=== PATIENT | female | born 2000 | race Caucasian/White ===

== ENCOUNTER 2018-01-08 09:10 | Emergency (ER) | payer MEDICAID, SELFPAY ==
[2018-01-08 09:12] VITALS: BP 141/83; PULSE 87; RESP 16; TEMP 36.6; O2SAT 99; BMI 27.9
--- NOTE | 2018-01-08 09:26 | CT_ITS ---
STUDY: CT ABDOMEN AND PELVIS WITHOUT CONTRAST REASON FOR EXAM: Female, 17 years old. LEFT SIDE ABD PAIN, DIARRHEA RADIATION DOSAGE (If Supplied By Facility): CTDIvol = ( 6.20 ) mGy, DLP = ( 278.86 ) mGycm TECHNIQUE: Transaxial images were obtained from the dome of the diaphragm to the symphysis pubis without oral contrast, and without intravenous contrast. Sagittal and coronal images were reconstructed. Individualized dose optimization techniques were used for this CT. COMPARISON: None. FINDINGS: The visualized lung bases are unremarkable. The visualized portions of the heart are within normal limits. Normal liver. Normal gallbladder and extrahepatic biliary system. Normal spleen. Normal pancreas. Normal bilateral adrenal glands. Normal right kidney. Normal left kidney. Normal visualized stomach. Normal small intestine. Normal colon. The appendix is visualized and appears normal. Normal abdominal aorta. Normal inferior vena cava. Normal retroperitoneum. Normal urinary bladder. Normal abdominal wall. Normal osseous structures. CT/Abdomen/Pelvis without Cont IMPRESSION: Normal unenhanced CT of the abdomen and pelvis. Electronically Signed: Jae Joel MD at 10:57 EDT Tel , Service support ,
[2018-01-08 09:50] LABS: Absolute Lymphocyte Count 2.27 X10^3/ul (0.83-4.51); Absolute Neutrophil Count 4.1 X10^3/uL (2.0-7.7); Basophil# 0.01 X10^3/uL; Basophil% 0.1 % (0-1); Eosinophil# 0.23 X10^3/uL; Eosinophils% 3.2 % (0-5); Hematocrit 41.7 % (37-47); Hemoglobin 14.6 g/dl (12.0-15.0); Lymphocyte # 2.27 X10^3/ul (4.0); Lymphocyte % 31.7 % (19-41); Mean Corpuscular Hgb 30.5 pg (27.0-32.0); Mean Corpuscular Volume 87.1 fL (81-99); Mean Platelet Vol. 10.7 fl (6.2-12.0); Neutrophil # 4.12 X10^3/uL (2.7-7.7); Neutrophil % 57.7 % (47-70); Platelet Count 222 K/mm3 (150-450); RBC Distribution Width CV 12.5 % (11.6-14.6); RBC Distribution Width SD 39.4 fl (35.1-43.9); Red Blood Count 4.79 M/mm3 (4.2-5.4); White Blood Count 7.2 K/mm3 (4.4-11.0)
[2018-01-08 09:54] LABS: POSITIVE COUNT NO; POSITIVE DIFFERENTIAL NO; POSITIVE MORPHOLOGY NO
[2018-01-08 10:02] LABS: Anion Gap 7 (5-15); BUN 8 mg/dL (7-18); BUN/Creat Ratio 11.4 RATIO (10-20); Calcium,Total 8.9 mg/dL (8.5-10.1); Chloride 104 mmol/L (98-107); EST Glomerular Filtration Rate 113 mL/min (>60); Est Glom Filt Rate - Afr Amer 137 mL/min (>60); Estimated Creatinine Clearance 92.85 ml/min; Glucose 125 mg/dL (74-106); Potassium 3.4 mmol/L (3.5-5.1); Sodium Level 139 mmol/L (136-145)
[2018-01-08] MEDS: 0.9% Normal Saline 1,000 ML 125 ML IV (10:04)
[2018-01-08] MEDS: Ketorolac 30 MG/ML Syringe IV (10:04)
[2018-01-08 10:19] LABS: Pregnancy, Serum, hCG Quali. NEGATIVE Negative (0-9 Nonpreg)
[2018-01-08 10:22] LABS: Red Blood Cells-Urine 0 SEEN /hpf (0-5)
[2018-01-08 10:29] LABS: Color, Urine Yellow (Yellow); Glucose, Dipstick Normal (Normal); Ketone-Dipstick Negative (Negative); Leukocyte Esterase-Dipstick 100 /ul (Negative); Nitrite-Dipstick Negative (Negative); Occult Blood-Urine Negative /ul (Negative); Protein-Dipstick 15 mg/dl (Negative); Specific Gravity, Urine 1.015 (1.002-1.030); Urine Bilirubin Dipstick Negative (Negative); Urine Clarity Sl. Cloudy (Clear); Urine Urobilinogen Normal (Normal); Urine pH 6.5 (5.0 - 8.0)
[2018-01-08 10:41] LABS: Bacteria 1+ /hpf (None Seen); Mucous, Urine 1+ /hpf (<or=2+); Squamous Epithelial Cells - UA 0-5 SEEN /hpf (5-10); White Blood Cells 10-25 SEEN /hpf (0-5)
--- NOTE | 2018-01-08 11:08 | ED.DCSUM_ITS ---
- ER Visit Summary Date of Service: 01/08/18 Chief Complaint: [Abdominal pain] History of Present Illness: The patient is a 17 F [presents to the emergency department with complaint of abdominal pain that started 3 days ago. Patient denies any nausea or vomiting. Patient also with diarrhea for the last 2-3 days that has been watery and about every 2-3 hours. Patient complains of urinary frequency but no dysuria. Patient has a history of PCO S and her last menstrual period was on December 08. Patient took a home test on January 04 and was negative. Patient denies any sick contacts. Patient rates her pain an 8 or 9 out of 10 on arrival. Patient describes the pain is left lower abdomen and into her back.] Physical Examination: [HEENT-PERRLA, EOMI. Cranial nerves II through XII grossly intact. TMs clear. Mucous membranes moist. No adenopathy. Cardiovascular-regular rate and rhythm without murmur or ectopy Lungs-clear to auscultation, chest wall stable without crepitus or subcu emphysema Abdomen-normoactive bowel sounds, soft. Patient has tenderness over left lower quadrant with some guarding. There is no rebound, rigidity, or perineal signs. Patient has CVA tenderness on the left. Extremities-intact ?4, normal range of motion, normal pulses, atraumatic] Test Results: [CBC with differential was normal. Chemistries unremarkable other than a slightly depressed potassium at 3.4. Glucose was 125. Urinalysis was positive for 100 leukocyte esterase, 10-25 WBCs, +1 bacteria. Urine culture was sent. HCG was negative. CT flank was normal.] Emergency Department Course and Treatment: [Patient was given a liter normal same fluid bolus as well as Zofran. Patient was medicated with Toradol. Patient was given Rocephin 1 g IV.] Treatment Plan: [Patient will be sent home with a prescription for Bactrim, Zofran, and advised to use Imodium for continued diarrhea.] Disposition: [Discharged home in stable condition. Patient advised to return if worsening pain, fever, dehydration, bloody stools, or condition should worsen in any way.] Impression: [Abdominal pain Urinary tract infection Diarrhea-suspect viral] This note was generated with [employer] dictation software. It may contain incorrect words, spelling, and punctuation that were not noted in review of the chart prior to signing ED Disposition - Plan for ED Patient: Chief Complaint: Abd Pain Referrals: Hesham Gomez DO [Primary Care Provider] -
--- NOTE | 2018-01-08 11:09 | ED.DEP ---
ED Disposition - Plan for ED Patient: Chief Complaint: Abd Pain Instructions: ED Abdominal Pain Unkn Cause, ED UTI Cystitis Female, ED Diarrhea Viral Prescriptions: Dicyclomine HCl [Bentyl] 20 mg PO TIDAC #20 cap Smz/Tmp Ds [Bactrim Ds] 1 tab PO BID #6 tab Referrals: Hesham Gomez DO [Primary Care Provider] - 3-5 Days
[2018-01-08] MEDS: Ceftriaxone 1 GM/50 mL Premix Q24 IV (11:16)
[2018-01-08 12:27] VITALS: BP 122/73; PULSE 84; RESP 14; TEMP 36.6; O2SAT 100
== END 2018-01-08 12:28 | disposition home or self-care (01) ==
PROVIDERS: Emergency Provider Emergency Medicine; Family Provider Preventive Medicine Occupational Medicine; PCP Preventive Medicine Occupational Medicine
DX: R10.9 Unspecified abdominal pain (principal); N39.0 Urinary tract infection, site not specified; R19.7 Diarrhea, unspecified; Z72.0 Tobacco use
CPT/HCPCS: 74176; 80048; 81001; 84703; 85025; 87086; 87088; 96361; 96365; 96375; 99283; J7030; A4216

== ENCOUNTER → 2018-02-01 14:57 | Outpatient (CLI) | payer MEDICAID, SELFPAY ==
[2018-02-02 08:28] LABS: Progesterone Level 0.82 ng/mL (See Comment)
== END ==
PROVIDERS: Visit Provider Obstetrics & Gynecology
DX: N92.5 Other specified irregular menstruation (principal)
CPT/HCPCS: 36415; 84144

== ENCOUNTER 2018-04-09 11:30 | Emergency (ER) | payer OTHER, SELFPAY ==
[2018-04-09 11:31] VITALS: BP 132/78; PULSE 94; RESP 17; TEMP 36.6; O2SAT 100; BMI 28.3
[2018-04-09] MEDS: 0.9% Normal Saline 1,000 ML 1000 ML IV (12:00)
[2018-04-09] MEDS: Morphine 4 MG/ML Syringe IV (12:00)
[2018-04-09] MEDS: Ondansetron 4 MG/2 ML Vial IV (12:00)
[2018-04-09 12:09] LABS: Absolute Lymphocyte Count 1.64 X10^3/ul (0.83-4.51); Absolute Neutrophil Count 11.5 X10^3/uL (2.0-7.7); Basophil# 0.01 X10^3/uL; Basophil% 0.1 % (0-1); Eosinophil# 0.19 X10^3/uL; Eosinophils% 1.3 % (0-5); Hematocrit 45.5 % (37-47); Hemoglobin 15.3 g/dl (12.0-15.0); Lymphocyte # 1.64 X10^3/ul (4.0); Lymphocyte % 11.6 % (19-41); Mean Corp Hgb Conc 33.6 g/gl (32-36); Mean Corpuscular Hgb 29.5 pg (27.0-32.0); Mean Corpuscular Volume 87.8 fL (81-99); Mean Platelet Vol. 10.3 fl (6.2-12.0); Monocyte# 0.78 X10^3/uL; Monocyte% 5.5 % (0-10); Neutrophil # 11.46 X10^3/uL (2.7-7.7); Neutrophil % 81.4 % (47-70); POSITIVE COUNT NO; POSITIVE DIFFERENTIAL NO; POSITIVE MORPHOLOGY NO; Platelet Count 242 K/mm3 (150-450); RBC Distribution Width CV 12.5 % (11.6-14.6); RBC Distribution Width SD 39.8 fl (35.1-43.9); Red Blood Count 5.18 M/mm3 (4.2-5.4); White Blood Count 14.1 K/mm3 (4.4-11.0)
[2018-04-09 12:26] LABS: ALB/GLOB Ratio 1.2 RATIO (0.9-2.4); AST(SGOT) 12 U/L (15-37); Alanine Aminotransfer ALT/SGPT 18 U/L (13-56); Alkaline Phosphatase 82 U/L (45-117); Anion Gap 7 (5-15); BUN 8 mg/dL (7-18); BUN/Creat Ratio 12.4 RATIO (10-20); Calcium,Total 8.9 mg/dL (8.5-10.1); Chloride 103 mmol/L (98-107); Creatinine, Serum 0.64 mg/dL (0.55-1.02); EST Glomerular Filtration Rate 125 mL/min (>60); Est Glom Filt Rate - Afr Amer 151 mL/min (>60); Estimated Creatinine Clearance 101.56 ml/min; Globulin 3.3 g/dL (2.2-4.2); Glucose 86 mg/dL (74-106); Potassium 3.8 mmol/L (3.5-5.1); Protein, Total 7.3 g/dL (6.4-8.2); Sodium Level 138 mmol/L (136-145)
[2018-04-09 12:29] LABS: Pregnancy, Serum, hCG Quali. NEGATIVE Negative (0-9 Nonpreg)
--- NOTE | 2018-04-09 13:17 | CT_ITS ---
STUDY: CT ABDOMEN AND PELVIS WITHOUT CONTRAST REASON FOR EXAM: Female, 17 years old. Lower cramping abdominal pain. RADIATION DOSAGE (If Supplied By Facility): CTDIvol = ( 6.96 ) mGy, DLP = ( 324.92 ) mGycm TECHNIQUE: Transaxial images were obtained from the dome of the diaphragm to the symphysis pubis without oral contrast, and without intravenous contrast. Sagittal and coronal images were reconstructed. Individualized dose optimization techniques were used for this CT. COMPARISON: Comparison is made with prior study dated January 08, 2018. FINDINGS: The visualized lung bases are unremarkable. The visualized portions of the heart are within normal limits. Normal liver. Normal gallbladder and extrahepatic biliary system. Normal spleen. Normal pancreas. Normal bilateral adrenal glands. Normal right kidney. Normal left kidney. Normal visualized stomach. Normal small intestine. Normal colon. The appendix is visualized and appears normal. Normal abdominal aorta. Normal inferior vena cava. Normal retroperitoneum. Normal urinary bladder. Normal abdominal wall. Normal osseous structures. CT/Abdomen/Pelvis without Cont IMPRESSION: Normal unenhanced CT of the abdomen and pelvis. Electronically Signed: Carlos Ram MD at 13:56 EDT Tel [phone], Service support ,
[2018-04-09 14:04] LABS: Red Blood Cells-Urine 0 SEEN /hpf (0-5)
[2018-04-09 14:13] VITALS: BP 111/52; PULSE 86; RESP 14; O2SAT 100
[2018-04-09 14:24] LABS: Color, Urine Yellow (Yellow); Glucose, Dipstick Normal (Normal); Ketone-Dipstick Negative (Negative); Leukocyte Esterase-Dipstick 500 /ul (Negative); Nitrite-Dipstick Negative (Negative); Occult Blood-Urine Negative /ul (Negative); Protein-Dipstick Negative (Negative); Specific Gravity, Urine 1.015 (1.002-1.030); Urine Bilirubin Dipstick Negative (Negative); Urine Clarity Sl. Cloudy (Clear); Urine Urobilinogen Normal (Normal)
[2018-04-09 14:39] LABS: Squamous Epithelial Cells - UA 0-5 SEEN /hpf (5-10); White Blood Cells 25-50 SEEN /hpf (0-5)
[2018-04-09 14:40] LABS: Bacteria 1+ /hpf (None Seen); Mucous, Urine 1+ /hpf (<or=2+)
--- NOTE | 2018-04-09 15:05 | ED.VISSUMM ---
- ER Visit Summary Date of Service: 04/09/18 Chief Complaint: [Abdominal pain] History of Present Illness: The patient is a 17 F [presents the emergency department complaint of abdominal pain that started around 9 AM. Patient is vomited ?2. Patient states her last menstrual period was supposed to be 2 or 3 days ago and she is a little bit late. Patient denies any fever. She denies urinary symptoms. Patient does have a history of PCO S. She denies any sick contacts.] Physical Examination: [HEENT-PERRLA, EOMI. Cranial nerves II through XII grossly intact. TMs clear. Mucous membranes moist. No adenopathy. Cardiovascular-regular rate and rhythm without murmur or ectopy Lungs-clear to auscultation, chest wall stable without crepitus or subcu emphysema Abdomen-normoactive bowel sounds, soft. Patient has significant discomfort to her abdomen mostly lower quadrants on palpation. There is no rebound, rigidity, or perineal signs. No CVA tenderness on exam. Extremities-intact ?4, normal range of motion, normal pulses, atraumatic] Test Results: [C with differential obtained showed an elevated white blood cell count of 14.1, hemoglobin 15, hematocrit 45, platelets 242. Chemistries unremarkable. LFTs were normal. HCG was negative. Urine showed positive for 500 leukocyte esterase 25-50 WBCs and +[address] flank showed nothing acute and the appendix was visualized and was normal.] Emergency Department Course and Treatment: Patient while in the emergency department was medicated with morphine and Zofran. Patient was given a dose of Bactrim. [] Treatment Plan: [Patient follow-up with her primary care physician within next 3-5 days. Patient will be treated with Bactrim, Zofran, and Pyridium. Patient also will be given a prescription for 10 [place] tablets for severe pain.] Disposition: [Discharged home in stable condition] Impression: [Abdominal pain Urinary tract infection] This note was generated with [employer] dictation software. It may contain incorrect words, spelling, and punctuation that were not noted in review of the chart prior to signing ED Disposition - Plan for ED Patient: Chief Complaint: Abd Pain Referrals: Hesham Gomez DO [Primary Care Provider] -
--- NOTE | 2018-04-09 15:08 | ED.DCSUM_ITS ---
- ER Visit Summary Date of Service: 04/09/18 Chief Complaint: [Abdominal pain] History of Present Illness: The patient is a 17 F [presents the emergency department complaint of abdominal pain that started around 9 AM. Patient is vomited ?2. Patient states her last menstrual period was supposed to be 2 or 3 days ago and she is a little bit late. Patient denies any fever. She denies urinary symptoms. Patient does have a history of PCO S. She denies any sick contacts.] Physical Examination: [HEENT-PERRLA, EOMI. Cranial nerves II through XII grossly intact. TMs clear. Mucous membranes moist. No adenopathy. Cardiovascular-regular rate and rhythm without murmur or ectopy Lungs-clear to auscultation, chest wall stable without crepitus or subcu emphysema Abdomen-normoactive bowel sounds, soft. Patient has significant discomfort to her abdomen mostly lower quadrants on palpation. There is no rebound, rigidity , or perineal signs. No CVA tenderness on exam. Extremities-intact ?4, normal range of motion, normal pulses, atraumatic] Test Results: [C with differential obtained showed an elevated white blood cell count of 14.1, hemoglobin 15, hematocrit 45, platelets 242. Chemistries unremarkable. LFTs were normal. HCG was negative. Urine showed positive for 500 leukocyte esterase 25-50 WBCs and +[address] flank showed nothing acute and the appendix was visualized and was normal.] Emergency Department Course and Treatment: Patient while in the emergency department was medicated with morphine and Zofran. Patient was given a dose of Bactrim. [] Treatment Plan: [Patient follow-up with her primary care physician within next 3 -5 days. Patient will be treated with Bactrim, Zofran, and Pyridium. Patient also will be given a prescription for 10 [place] tablets for severe pain.] Disposition: [Discharged home in stable condition] Impression: [Abdominal pain Urinary tract infection] This note was generated with [employer] dictation software. It may contain incorrect words, spelling, and punctuation that were not noted in review of the chart prior to signing ED Disposition - Plan for ED Patient: Chief Complaint: Abd Pain Referrals: Hesham Gomez DO [Primary Care Provider] -
--- NOTE | 2018-04-09 15:08 | ED.DEP ---
ED Disposition - Plan for ED Patient: Chief Complaint: Abd Pain Instructions: ED Abdominal Pain Unkn Cause, ED UTI Cystitis Female Prescriptions: Hydrocodone Bitart/Apap 5-325 [[place] 5MG-325MG] 1 tab PO Q4H PRN PRN 2 Days #10 tab PRN Reason: Pain Ondansetron [Zofran Odt] 4 mg PO Q8H PRN PRN #10 tab PRN Reason: Nausea Smz/Tmp Ds [Bactrim Ds] 1 tab PO BID #10 tab Phenazopyridine HCl [Pyridium] 200 mg PO TID #10 tab Referrals: Hesham Gomez DO [Primary Care Provider] - 3-5 Days
--- NOTE | 2018-04-09 15:13 | DCINST.ED_ITS ---
ED Disposition - Plan for ED Patient: Chief Complaint: Abd Pain Instructions: ED Abdominal Pain Unkn Cause, ED UTI Cystitis Female Prescriptions: Hydrocodone Bitart/Apap 5-325 [[place] 5MG-325MG] 1 tab PO Q4H PRN PRN 2 Days #10 tab PRN Reason: Pain Ondansetron [Zofran Odt] 4 mg PO Q8H PRN PRN #10 tab PRN Reason: Nausea Smz/Tmp Ds [Bactrim Ds] 1 tab PO BID #10 tab Phenazopyridine HCl [Pyridium] 200 mg PO TID #10 tab Referrals: Hesham Gomez DO [Primary Care Provider] - 3-5 Days
[2018-04-09] MEDS: Smz/Tmp Ds Tablet 1 TABLET PO (15:30)
== END 2018-04-09 16:17 | disposition home or self-care (01) ==
PROVIDERS: Emergency Provider Emergency Medicine; Family Provider Preventive Medicine Occupational Medicine; PCP Preventive Medicine Occupational Medicine
DX: R10.9 Unspecified abdominal pain (principal); N39.0 Urinary tract infection, site not specified; Z72.0 Tobacco use
CPT/HCPCS: 74176; 80053; 81001; 84703; 85025; 99283; J7030; J2405

== ENCOUNTER 2018-12-09 12:31 | Emergency (ER) | payer OTHER, SELFPAY ==
[2018-12-09 12:32] VITALS: BP 159/96; PULSE 112; RESP 15; TEMP 36.7; O2SAT 100; BMI 24.1
--- NOTE | 2018-12-09 13:20 | ED.DCSUM_ITS ---
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, indicates today she came in because she needs to be able to document that she was seen by physician for the pain that she is having that she was sent home for she has had musculoskeletal back pains before she had no direct trauma she has no numbness or paresthesias no head neck chest or abdominal pain Where she hurts she basically indicated from the right parascapular area to the right of the spine all the way down to the lumbar region right paralumbar she has no midline pain and no direct trauma and no numbness weakness paresthesias and again she has had this before with activity Physical Examination: [] All signs are normal General, no distress resting comfortably HEENT is generally unremarkable The neck is supple no adenopathy Cardiovascular, regular rate and rhythm Lungs, clear bilateral Abdomen, soft nontender Her back she there is a vague pain to the right para thoracic and paralumbar musculature there is no C-spine T-spine lumbar back pain she has full range of motion of upper extremities and lower extremities and again she should has been no trauma Extremities, no clubbing cyanosis or edema Neurologic, awake alert answering questions appropriately moving all 4 extremities Test Results: [] Emergency Department Course and Treatment: [] This is a work issue where somehow she needs to document that she was seen by physician I explained her that she has had these ongoing issues she is to follow with her primary care physicians, she will be started on Naprosyn which she will be given her discharge paperwork to show her employer that she was seen in the emergency department if that helps her situation Treatment Plan: [] Disposition: [] Home stable Impression: []rt Sided diffuse back pain related to work activity This note was generated with [employer] software. It may contain incorrect words, spelling, and punctuation that were not noted in review of the chart prior to signing ED Disposition - Plan for ED Patient: Referrals: Hesham Gomez DO [Primary Care Provider] -
--- NOTE | 2018-12-09 13:20 | ED.DEP ---
ED Disposition - Plan for ED Patient: Instructions: ED Spasm Back No Trauma Prescriptions: Naproxen [Naprosyn] 500 mg PO BID PRN #20 tab Referrals: Hesham Gomez DO [Primary Care Provider] -
[2018-12-09] MEDS: Naproxen 500 MG Tablet PO (13:46)
[2018-12-09 13:47] VITALS: PULSE 110; RESP 14; O2SAT 99
== END 2018-12-09 13:52 | disposition home or self-care (01) ==
LOC: ED 13:33
PROVIDERS: Emergency Provider Emergency Medicine; Family Provider Preventive Medicine Occupational Medicine; PCP Preventive Medicine Occupational Medicine
DX: M54.9 Dorsalgia, unspecified (principal)
CPT/HCPCS: 99283

== ENCOUNTER 2019-07-27 23:57 | Emergency (ER) | payer OTHER, SELFPAY ==
[2019-07-27 23:58] VITALS: BP 129/77; PULSE 94; RESP 15; TEMP 36.7; O2SAT 99; BMI 28.0
--- NOTE | 2019-07-28 00:17 | ED.DCSUM_ITS ---
History of Present Illness Chief Complaint: Abd Pain Informant: Patient Onset: Days - 2 Context: Gradual Onset Timing: Continuous Current Severity: Severe Worsened by: Movement, walking Relieved by: Nothing Narrative: Patient is a 19-year-old female with history of PCOS presenting with right-sided abdominal pain. Patient states is been worsening since , 2 days ago. Patient states is she woke up with it is gradually worsened. The pain is in the right middle abdomen it does not radiate. She describes it as sharp. Is worse with movement and walking. She has no associated nausea, vomiting or change in bowel habits. She had no fever chills. She has no urinary symptoms. Her last menstrual period was 2 weeks ago. She does not think she is . She has not taken anything for the pain. 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 She has no associated rash. Patient states she could not take the pain anymore so she came into be evaluated. She denies any other complaints at this time. She states she never had this before. Past Medical History - Allergies and Home Meds Allergies/Adverse Reactions: Allergies sumatriptan [From Imitrex] Allergy (Verified 07/28/19 00:01) Shortness of breath Primary Care Physician: Hesham Gomez DO [Primary Care Provider] - Past Medical History: - - PCOS Surgical History: no surgical history Smoking Status: Current every day smoker Review of Systems All systems negative except as indicated Gastrointestinal: Reports: Abdominal pain Physical Exam Vital Signs/Narrative: Vital Signs Temp Pulse Resp BP Pulse Ox 07/27/19 23:58 98.0 F 94 15 129/77 H 99 Inital Vital Signs reviewed: Yes General: Well nourished, Well developed, No Acute Distress Head: Normocephalic, Atraumatic Eyes: Perrl, EOMI ENT: Moist mucous membranes, No rhinorrhea Neck: Supple, Nontender Cardiovascular: Regular rate, Regular rhythm, No murmurs Respiratory: No distress, CTA bilaterally, Chest nontender Abdomen: Soft, Nondistended, Normal bowel sounds, - - No mass or hernia appreciated, tenderness to palpation in the right mid abdomen and right flank. Negative for: Guarding, Rebound tenderness, Brannon's sign Back: Nontender, Normal Inspection. Negative for: CVA tenderness Extremities: Nontender, No edema Skin: Normal color, No rash Neurological: Alert, Oriented x3, Cranial nerves II-XII grossly intact, Normal Strength, Normal Sensation Psychological: Normal affect, Normal Mood Diagnostic/Tx/Re-eval Laboratory Results - last 24 hr 07/28/19 07/28/19 07/28/19 00:28 00:28 00:30 WBC 8.7 RBC 4.73 Hgb 14.4 Hct 42.9 MCV 90.7 MCH 30.4 MCHC 33.6 RDW Std Deviation 38.7 RDW Coeff of Shania 11.6 Plt Count 286 MPV 10.5 Immature Gran % (Auto) 0.200 Neut % (Auto) 60.9 Lymph % (Auto) 27.0 Alcorn % (Auto) 9.2 Eos % (Auto) 2.0 Baso % (Auto) 0.7 Absolute Neuts (auto) 5.3 Absolute Lymphs (auto) 2.34 Nucleated RBC % 0 Sodium 139 Potassium 3.0 L Chloride 105 Carbon Dioxide 27.0 Anion Gap 7 BUN 11 Creatinine 0.66 Estim Creat Clear Calc 96.85 Est GFR (MDRD) Af Amer 144 Est GFR (MDRD) Non-Af 119 BUN/Creatinine Ratio 16.5 Glucose 102 Calcium 8.9 Total Bilirubin 0.50 AST 9 L ALT 16 Alkaline Phosphatase 68 Total Protein 7.3 Albumin 4.3 Globulin 3.0 Albumin/Globulin Ratio 1.4 Lipase 133 Urine Color Urine Clarity Urine pH Ur Specific [place] Urine Protein Urine Glucose (UA) Urine Ketones Urine Occult Blood Urine Nitrite Urine Bilirubin Urine Urobilinogen Ur Leukocyte Esterase Urine RBC Urine WBC Ur Squamous Epith Cells Urine Bacteria Urine Mucus Urine Test Negative 07/28/19 00:30 WBC RBC Hgb Hct MCV MCH MCHC RDW Std Deviation RDW Coeff of Shania Plt Count MPV Immature Gran % (Auto) Neut % (Auto) Lymph % (Auto) [place] % (Auto) Eos % (Auto) Baso % (Auto) Absolute Neuts (auto) Absolute Lymphs (auto) Nucleated RBC % Sodium Potassium Chloride Carbon Dioxide Anion Gap BUN Creatinine Estim Creat Clear Calc Est GFR (MDRD) Af Amer Est GFR (MDRD) Non-Af BUN/Creatinine Ratio Glucose Calcium Total Bilirubin AST ALT Alkaline Phosphatase Total Protein Albumin Globulin Albumin/Globulin Ratio Lipase Urine Color Yellow Urine Clarity Clear Urine pH 6.0 Ur Specific [place] 1.025 Urine Protein 30 H Urine Glucose (UA) Normal Urine Ketones 5 H Urine Occult Blood Negative Urine Nitrite Negative Urine Bilirubin Negative Urine Urobilinogen 1 H Ur Leukocyte Esterase 25 H Urine RBC 0-5 SEEN Urine WBC 0-5 SEEN Ur Squamous Epith Cells 5-10 SEEN Urine Bacteria 0 SEEN Urine Mucus 3+ Urine Test - Medical Decision Making Patient is evaluated for 3 days of worsening abdominal pain. The pain is in her right middle abdomen and right flank. It seems to be musculoskeletal in origin. Lab work is grossly normal and patient has no signs of infection. CBC is normal. BMP is remarkable only for a mildly decreased potassium. Patient is counseled to eat foods rich in potassium such as bananas for the next few days. She is given Toradol for pain control with only minimal improvement. Patient is given a Lidoderm patch. Pain is easily reproducible with movement and palpation. I do not palpate appreciate any hernia. I do not think imaging is indicated emergently. She has normal vital signs is afebrile. Urinalysis is negative for signs of acute infection and patient does not have any urinary symptoms. Urine is negative. Patient does request a work note for Monday through Monday which she is given. Patient will be discharged home with a course of Motrin for pain control. She is counseled that if she found the Lidoderm patch helpful tonight that she can get [id number] 4% letter and patches at any pharmacy. Patient is counseled on signs and symptoms requiring return to the emergency room. Patient verbalizes agreement and understand this plan. Patient discharged home in stable and improved condition. ED Disposition - Plan for ED Patient: Disposition: Home or Assisted Living Diagnosis: Abdominal wall pain Instructions: ABDOMINAL PAIN, Unknown Cause, (Female), MUSCLE STRAIN, Abdomen Prescriptions: Ibuprofen 600 mg PO 4X/DAY PRN #20 tab PRN Reason: Pain Or Fever Prescription Printed Referrals: Hesham Gomez DO [Primary Care Provider] - Additional Instructions: Apply heat to the area of pain. You can use [id number] Lidoderm patches if you find it helpful. Avoid strenuous activity. Please follow-up with your primary care doctor if you are still having the symptoms on Monday and with no improvement. Return to the emergency room if you have any worsening symptoms or other concerns. Potassium was mildly low today. Please make sure you increase your dietary potassium intake such as eating more bananas.
[2019-07-28] MEDS: 0.9% Normal Saline 1,000 ML 1000 ML IV (00:29)
[2019-07-28] MEDS: Ketorolac 30 MG/ML Syringe IV (00:29)
[2019-07-28 00:37] LABS: Bacteria 0 SEEN /hpf (None Seen)
[2019-07-28 00:40] LABS: Color, Urine Yellow (Yellow); Glucose, Dipstick Normal (Normal); Ketone-Dipstick 5 mg/dl (Negative); Leukocyte Esterase-Dipstick 25 /ul (Negative); Nitrite-Dipstick Negative (Negative); Occult Blood-Urine Negative /ul (Negative); Protein-Dipstick 30 mg/dl (Negative); Specific Gravity, Urine 1.025 (1.002-1.030); Urine Bilirubin Dipstick Negative (Negative); Urine Clarity Clear (Clear); Urine Urobilinogen 1 mg/dl (Normal)
[2019-07-28 00:40] LABS: Absolute Lymphocyte Count 2.34 X10^3/uL (0.83-4.51); Absolute Neutrophil Count 5.3 X10^3/uL (2.0-7.7); Basophil# 0.06 X10^3/uL; Basophil% 0.7 % (0-1); Eosinophil# 0.17 X10^3/uL; Hematocrit 42.9 % (37-47); Hemoglobin 14.4 g/dL (12.0-15.0); Lymphocyte # 2.34 X10^3/ul (4.0); Mean Corp Hgb Conc 33.6 g/dL (32-36); Mean Corpuscular Hgb 30.4 pg (27.0-32.0); Mean Corpuscular Volume 90.7 fL (81-99); Mean Platelet Vol. 10.5 fl (6.2-12.0); Monocyte% 9.2 % (0-10); NRBC Flagged by Analyzer 0 % (0-5); Neutrophil # 5.28 X10^3/uL (2.7-7.7); Neutrophil % 60.9 % (47-70); Platelet Count 286 K/mm3 (150-450); RBC Distribution Width CV 11.6 % (11.6-14.6); RBC Distribution Width SD 38.7 fl (35.1-43.9); Red Blood Count 4.73 M/mm3 (4.2-5.4); White Blood Count 8.7 K/mm3 (4.4-11.0)
[2019-07-28 00:45] LABS: Internal QC Validated? YES +Cl - CLEAR BKGD; Pregnancy, Urine Negative Negative
[2019-07-28 00:56] LABS: Mucous, Urine 3+ /hpf (<or=2+); Red Blood Cells-Urine 0-5 SEEN /hpf (0-5); Squamous Epithelial Cells - UA 5-10 SEEN /hpf (5-10); White Blood Cells 0-5 SEEN /hpf (0-5)
[2019-07-28 00:59] LABS: ALB/GLOB Ratio 1.4 RATIO (0.9-2.4); AST(SGOT) 9 U/L (15-37); Alanine Aminotransfer ALT/SGPT 16 U/L (13-56); Albumin, Serum 4.3 g/dL (3.2-5.0); Alkaline Phosphatase 68 U/L (45-117); Anion Gap 7 (5-15); BUN 11 mg/dL (7-18); BUN/Creat Ratio 16.5 RATIO (10-20); Calcium,Total 8.9 mg/dL (8.5-10.1); Chloride 105 mmol/L (98-107); Creatinine, Serum 0.66 mg/dL (0.55-1.02); EST Glomerular Filtration Rate 119 mL/min (>60); Est Glom Filt Rate - Afr Amer 144 mL/min (>60); Estimated Creatinine Clearance 96.85 ml/min; Glucose 102 mg/dL (74-106); Lipase 133 U/L (73-393); Protein, Total 7.3 g/dL (6.4-8.2); Sodium Level 139 mmol/L (136-145)
[2019-07-28 01:34] VITALS: BP 108/75; PULSE 64; RESP 15; O2SAT 99
[2019-07-28] MEDS: Lidocaine 5% Patch 1 PATCH TOPICAL (01:53)
== END 2019-07-28 02:03 | disposition home or self-care (01) ==
PROVIDERS: Emergency Provider Emergency Medicine; Family Provider Preventive Medicine Occupational Medicine; PCP Preventive Medicine Occupational Medicine
DX: R10.9 Unspecified abdominal pain (principal); E28.2 Polycystic ovarian syndrome; F17.200 Nicotine dependence, unspecified, uncomplicated
CPT/HCPCS: 80053; 81001; 81025; 83690; 85025; 96361; 96374; 99283; J7030

== ENCOUNTER 2023-03-27 09:28 | Emergency (ER) | payer BC, SELFPAY ==
[2023-03-27 09:29] VITALS: BP 117/73; PULSE 87; RESP 16; TEMP 36.3; O2SAT 100; BMI 24.7
--- NOTE | 2023-03-27 09:40 | EX.ED.UPPERE ---
HPI History of Present Illness HPI Narrative: Patient presents with pain in her right thumb and wrist that began today. Patient states it began rather suddenly. Patient denies any trauma or injury. Patient states the pain is sharp. Patient states it is worse with movement and with grasping things. Patient does admit to some tingling into her thumb. Patient denies any weakness. Patient states her pain does radiate up to her forearm. Patient states she has been taking ibuprofen with no improvement of her pain. Chief Complaint: Upper Extremity Injury Onset/Context/Timing Onset: Today Context: Sudden Onset Timing: Continuous Quality of Pain: Sharp Location: Right thumb and wrist Worsened by: Movement, grasping Relieved by: Nothing Associated Symptoms Associated Symptoms: Positive for Parasthesia; Negative for Weakness or Loss of Funtion PFSH [facility] Medical History (Updated 03/27/23 @ 10:[address] José Miguel Houston, DO) Seizure disorder Home Medications metformin 500 mg 24 hr tablet,extended release 750 mg PO BID 01/08/18 [History Last Taken 12/08/18] levetiracetam 500 mg tablet (Keppra) 500 mg PO BID 04/09/18 [History Last Taken 12/09/18] naproxen 500 mg tablet (Naprosyn) 500 mg PO BID PRN pain #20 tabs 03/27/23 [Rx Last Taken Unknown] Allergy/AdvReac Type Severity Reaction Status Date / Time sumatriptan [From Imitrex] Allergy Shortness Verified 03/27/23 09:29 of breath Surgical History no surgical history no surgical history Social History Smoking Status: Current every day smoker tobacco type: e-cigarettes ROS ROS ED Constitutional Constitutional ED: Denies chills or fever(s) Eyes Eyes: Denies blurry vision or change in vision ENT ENT ED: Denies rhinorrhea or sore throat Cardiovascular Cardiovascular: Denies chest pain or palpitations Respiratory/Chest Respiratory/Chest: Denies cough or dyspnea Gastrointestinal Gastrointestinal: Denies nausea or vomiting Genitourinary Genitourinary ED: Denies dysuria or hematuria Musculoskeletal Musculoskeletal: Denies back pain or neck pain Integumentary Denies abscess or rash Neurologic Neurologic: Denies headache(s) or weakness Allergic/Immunologic Allergic/Immunologic ED: Denies mouth swelling or urticaria EXAM Physical Exam Const Vital Signs: 03/27/23 09:29 Temperature 97.3 F L Temperature Source Temporal Pulse Rate 87 Respiratory Rate 16 Blood Pressure 117/73 Blood Pressure Mean 87 Pulse Ox 100 Oxygen Delivery Method Room Air Positive well nourished and well developed General Appearance ED: well developed and NAD HEENT Reports moist mucous membranes Neck full ROM and supple Extremity Extremity Narrative: There is tenderness over the right wrist and right thumb. There is no edema or ecchymosis. There is no bony crepitance or step-off noted. Sensation was intact to light touch in the radial, median, and ulnar areas. Strength is 5/5 in the radial, median, and ulnar areas. Radial pulses are equal bilaterally. There is a positive Tinel's sign at the wrist. There is pain with flexion of the wrist however, there are no paresthesias associated with that. There is a negative Tinel's sign at the elbow over the cubital tunnel. Neuro oriented x3, CN's II-XII intact bilaterally, moves all extremities, no focal motor deficits and no sensory deficits noted Sensorium / Orientation: alert Motor Exam: strength 5/5 throughout MDM MDM MDM Narrative Medical decision making narrative: Differential diagnosis includes carpal tunnel, occult fracture, tendinitis, and arthritis. X-rays of the right wrist will be obtained to assess for arthritis and occult fracture. Radiography Diagnostic Testing: X-rays of the right wrist were obtained. There are 3 views. On my independent interpretation, there is no acute fracture. There is no dislocation. There is no soft tissue swelling. Radiologist also interpreted the x-rays and agrees. Treatment and Re-Evaluation Narrative: Patient was given a dose of Naprosyn here. Patient was advised of her findings. Patient was instructed to continue ice and elevation. Patient was given a cock-up wrist splint. Patient was given a prescription for Naprosyn. Patient was instructed to follow-up with her primary care physician in 5 to 7 days for further evaluation. Patient understood and was agreeable with the plan. All questions were answered. Discharge Plan Triage Chief Complaint: Upper Extremity Injury ED Provider: José Miguel Houston Dx/Rx/DC Orders Clinical Impression: Paresthesia of thumb of right hand, Pain in right wrist Instructions: ED Wrist Sprain Prescriptions: New naproxen [Naprosyn] 500 mg tablet 500 mg PO BID PRN (Reason: pain) Qty: 20 0RF Discontinued ibuprofen 600 MG tablet 600 mg PO 4X/DAY PRN (Reason: Pain Or Fever) Qty: 20 0RF No Action metformin 500 MG tablet,ER cosme.retention 24 hr 750 mg PO BID levetiracetam [Keppra] 500 MG tablet 500 mg PO BID Primary Care Provider: Care Physician,No Primary Referrals: Hesham Gomez DO [Non-Staff] - 5-7 Days Disposition Disposition: Home, Self Care
--- NOTE | 2023-03-27 09:50 | RAD_ITS ---
STUDY: X-RAY - RIGHT WRIST REASON FOR EXAM: Female, 22 years old. Pain after fall TECHNIQUE: 3 view(s) of the wrist were obtained. COMPARISON: None. FINDINGS: Normal visualized distal radius and ulna. Normal radiocarpal articulation. Normal distal radioulnar articulation. Normal carpal bones. Normal carpal articulations. Normal carpometacarpal articulation of the thumb. Normal second through fifth carpometacarpal articulations. Normal visualized metacarpal bones. The soft tissue structures are unremarkable. RAD/Wrist min 3 Views IMPRESSION: Normal x-ray examination of the wrist. Electronically Signed: Todd Vann MD at 10:11 EDT ,
[2023-03-27] MEDS: Naproxen 500 MG Tablet PO (09:52)
== END 2023-03-27 11:20 | disposition home or self-care (01) ==
PROVIDERS: Emergency Provider Emergency Medicine; Visit Provider Emergency Medicine
DX: M25.531 Pain in right wrist (principal); G40.909 Epilepsy, unspecified, not intractable, without status epilepticus; R20.2 Paresthesia of skin; F17.290 Nicotine dependence, other tobacco product, uncomplicated; Z79.899 Other long term (current) drug therapy
CPT/HCPCS: 73110; 99283